=== PATIENT | female | born 1995 | race Caucasian/White ===

== ENCOUNTER 2016-10-31 18:29 | Emergency (ER) | payer MEDICAID, OTHER ==
[2016-10-31 18:54] VITALS: BMI 32.3
--- NOTE | 2016-10-31 19:23 | C.PDOC ---
History Of Present Illness Patient presents to the ER with mid epigastric discomfort that has worsened over the last few days. Patient reports some nausea but denies vomiting, diarrhea, fever or chills. Patient also notes having a miscarriage in May. Time Seen by Provider: 10/31/16 19:22 Chief Complaint (Nursing): Abdominal Pain History Per: Patient History/Exam Limitations: no limitations Onset/Duration Of Symptoms: Days Current Symptoms Are (Timing): Still Present Severity: Moderate Pain Scale Rating Of: 4 Location Of Pain/Discomfort: Epigastric (Mid) Radiation Of Pain To:: None Quality Of Discomfort: Unable To Describe Associated Symptoms: Nausea. denies: Fever, Chills, Vomiting Alleviating Factors: None Recent travel outside of the [place]: No Abnormal Vaginal Bleeding: No Past Medical History Reviewed: Historical Data, Nursing Documentation, Vital Signs Vital Signs: Last Vital Signs Temp 98.0 F 10/31/16 19:00 Pulse 82 10/31/16 19:00 Resp 18 10/31/16 19:00 BP 123/82 10/31/16 19:00 Pulse Ox 98 10/31/16 19:51 - Medical History PMH: Anemia Surgical History: No Surg Hx - [facility] Procedures REPAIR OB LACERATION NEC (12/05/14) Family History: States: Diabetes - Social History Hx Tobacco Use: No Hx Alcohol Use: No Hx Substance Use: No - Immunization History Hx Tetanus Toxoid Vaccination: No Hx Influenza Vaccination: No Hx Pneumococcal Vaccination: No Review Of Systems Constitutional: Negative for: Fever, Chills Eyes: Negative for: Redness ENT: Negative for: Throat Pain Cardiovascular: Negative for: Chest Pain Respiratory: Negative for: Shortness of Breath Gastrointestinal: Positive for: Nausea, Abdominal Pain (Mid epigastric). Negative for: Vomiting, Diarrhea Genitourinary: Positive for: Frequency. Negative for: Hematuria Musculoskeletal: Negative for: Back Pain Skin: Negative for: Rash, Lesions, Jaundice, Bruising Neurological: Negative for: Weakness Psych: Negative for: Anxiety Physical Exam - Physical Exam Appears: Non-toxic Skin: Warm, Dry Oral Mucosa: Moist Neck: Supple Chest: Symmetrical, No Tenderness Cardiovascular: Rhythm Regular, No Murmur Respiratory: No Rales, No Rhonchi, No Wheezing Gastrointestinal/Abdominal: Soft, No Tenderness, No Guarding, No Rebound, Other (Obese, tympanic to percussion) Back: Normal Inspection Extremity: Normal ROM Neurological/Psych: Oriented x3, Normal Speech, Normal Cognition Gait: Steady ED Course And Treatment - Laboratory Results Result Diagrams: 10/31/16 19:40 10/31/16 19:40 O2 Sat by Pulse Oximetry: 98 (Room air) Pulse Ox Interpretation: Normal Progress Note: Blood work and urinalysis ordered. Pepcid IVP and IV fluids administered. Reevaluation Time: 20:53 Reassessment Condition: Improved Medical Decision Making Medical Decision Making: Upon provider reevaluation patient is feeling better, is medically stable, and requires no further treatment in the ED at this time. Patient will be discharged home with Rx for macrobid and protonix. Counseling was provided and all questions were answered regarding diagnosis and need for follow up with the referred clinic. There is agreement to discharge plan. Return if symptoms persist or worsen. Disposition Counseled Patient/Family Regarding: Studies Performed, Diagnosis, Need For Followup, Rx Given - Disposition Referrals: Nani Pepe MD [Medical Doctor] - Disposition: HOME/ ROUTINE Disposition Time: 19:23 Condition: FAIR Prescriptions: Nitrofurantoin Macrocrystals [Macrobid] 1 cap PO BID #14 cap Pantoprazole Sodium [Protonix] 20 mg PO DAILY #15 ect Instructions: Urinary Tract Infection in Women (DC), Gastroesophageal Reflux Disease (ED) - Clinical Impression Clinical Impression: UTI (urinary tract infection), GERD (gastroesophageal reflux disease) - Scribe Statement The provider has reviewed the documentation as recorded by the Scribkirk Gallegos All medical record entries made by the Scribe were at my direction and personally dictated by me. I have reviewed the chart and agree that the record accurately reflects my personal performance of the history, physical exam, medical decision making, and the department course for this patient. I have also personally directed, reviewed, and agree with the discharge instructions and disposition.
[2016-10-31] MEDS ORDERED: Sodium Chloride 0.9% 1,000 ML IV ONE (19:26)
[2016-10-31] MEDS ORDERED: Sodium Chloride 0.9% 1,000 ML ONE (19:41)
[2016-10-31 19:44] LABS: BASO % 0.6 % (0.0-2.0); EOS # 0.1 K/uL (0.0-0.7); EOS % 1.7 % (0.0-4.0); HEMATOCRIT 37.7 % (34.0-47.0); LYMPH # 1.7 K/uL (1.0-4.3); LYMPH % 19.8 % (20.0-40.0); MEAN CELL VOLUME 81.1 fL (81.0-99.0); MEAN CORPUSCULAR HEMOGLOBIN 26.3 pg (27.0-31.0); MEAN CORPUSCULAR HGB CONC 32.5 g/dL (33.0-37.0); MEAN PLATELET VOLUME 11.2 fL (7.2-11.7); MONO # 0.5 K/uL (0.0-0.8); MONO % 5.5 % (0.0-10.0); RED CELL DISTRIBUTION WIDTH 15.7 % (11.5-14.5); WHITE BLOOD COUNT 8.7 K/uL (4.8-10.8)
[2016-10-31 19:46] LABS: RBC URINE 2 /hpf (0-3); URINE BACTERIA RARE (<OCC); URINE BILIRUBIN NEGATIVE (NEGATIVE); URINE BLOOD NEGATIVE (NEGATIVE); URINE COLOR Yellow (YELLOW); URINE GLUCOSE (UA) NORMAL (Normal); URINE KETONE NEGATIVE (NEGATIVE); URINE LEUKOCYTE ESTERASE 3+ Leu/uL (Negative); URINE PROTEIN NEGATIVE (NEGATIVE); URINE UROBILINOGEN NORMAL mg/dL (0.2-1.0); WBC URINE 11 /hpf (0-5)
[2016-10-31 19:52] LABS: CHLORIDE 101 mmol/L (98-107); POTASSIUM 4.4 mmol/L (3.6-5.2); SODIUM 139 mmol/L (132-148)
[2016-10-31 19:54] LABS: GFR AFRICAN-AMERICAN > 60
[2016-10-31 19:55] LABS: ALB/GLOB RATIO 1.1 (1.0-2.1); ALKALINE PHOSPHATASE 75 U/L (38-126); ALT/SGPT 24 U/L (9-52); AST/SGOT 21 U/L (14-36); BILIRUBIN,TOTAL 0.7 mg/dL (0.2-1.3); BLOOD UREA NITROGEN 11 mg/dL (7-17); CALCIUM 8.7 mg/dl (8.6-10.4); CARBON DIOXIDE 28 mmol/L (22-30); GLUCOSE,RANDOM 85 mg/dL (65-105); TOTAL PROTEIN 7.7 g/dL (6.3-8.3)
[2016-10-31] MEDS ORDERED: cefTRIAXone IV 1 gm in Dextros 50 ML IVPB ONE ×2 (20:24→20:55)
[2016-10-31] MEDS ORDERED: Albuterol-Ipratrop 3 mg / 0.5 (3 ml) UD ONE (21:08)
[2016-10-31 21:09] VITALS: BP 120/78; PULSE 74; RESP 20; TEMP 98.3; O2SAT 99
== END 2016-10-31 21:17 | disposition home or self-care (01) ==
LOC: C.ER 18:29
DX: K21.9 Gastro-esophageal reflux disease without esophagitis (principal); N39.0 Urinary tract infection, site not specified
CPT/HCPCS: 80053; 81001; 83690; 84703; 85025; 96361; 96374; 96375; 99283; J0696; J1885; J7040

== ENCOUNTER 2016-11-26 12:14 | Emergency (ER) | payer OTHER ==
[2016-11-26 12:15] VITALS: BMI 32.3
[2016-11-26 12:32] VITALS: BP 129/87; PULSE 85; TEMP 98; O2SAT 97
--- NOTE | 2016-11-26 12:52 | C.PDOC ---
History Of Present Illness 21 y/o female presents to the ED for evaluation of left lower premolar dental pain which began a couple days ago. Patient notes she had a prior filling in the same area. She denies fever, chills, recent injuries/trauma to the affected area. Time Seen by Provider: 11/26/16 12:46 Chief Complaint (Nursing): Dental Pain History Per: Patient History/Exam Limitations: no limitations Onset/Duration Of Symptoms: Days Current Symptoms Are (Timing): Still Present Quality: Positive for: "Pain" Additional History Per: Patient Past Medical History Reviewed: Historical Data, Nursing Documentation, Vital Signs Vital Signs: Last Vital Signs Temp 98 F 11/26/16 12:30 Pulse 85 11/26/16 12:30 Resp 18 11/26/16 13:21 BP 129/87 11/26/16 12:30 Pulse Ox 97 11/26/16 12:51 - Medical History PMH: Anemia Surgical History: No Surg Hx - [facility] Procedures REPAIR OB LACERATION NEC (12/05/14) Family History: States: Diabetes - Social History Hx Tobacco Use: No Hx Alcohol Use: No Hx Substance Use: No - Immunization History Hx Tetanus Toxoid Vaccination: No Hx Influenza Vaccination: No Hx Pneumococcal Vaccination: No Review Of Systems Except As Marked, All Systems Reviewed And Found Negative. Constitutional: Negative for: Fever, Chills ENT: Positive for: Other (+left lower premolar dental pain ) Physical Exam - Physical Exam Appears: Non-toxic, No Acute Distress Skin: Normal Color, Warm, Dry Head: Atraumatic Eye(s): bilateral: Normal Inspection Oral Mucosa: Moist Teeth: Other (+filling noted in premolar tooth) Gingiva: No Swelling Neck: Supple Extremity: Normal ROM Gait: Steady ED Course And Treatment O2 Sat by Pulse Oximetry: 97 (on RA) Pulse Ox Interpretation: Normal Progress Note: Patient received Amoxicillin PO and Motrin PO. Medical Decision Making Medical Decision Making: R anterior lower premolar prior cavity filled, probably renewed infection abx and nsaids and opt f/u with dentisty. Disposition Doctor Will See Patient In The: Office Counseled Patient/Family Regarding: Studies Performed, Diagnosis - Disposition Referrals: [facility] [Outside] [facility] [Outside] Disposition: HOME/ ROUTINE Disposition Time: 12:51 Condition: GOOD Additional Instructions: Amoxicillin 500 mg 2 veces al yahir por 1 semana Ibuprofeno 400-600 mg cada 6 horas zuly necessario para dolor Pepcid 20 mg en la noche para prevenir irritacion' del estomago debido al ibuprofeno Sigue en [facility] o' con otro dentista en [place] semana. Prescriptions: Amoxicillin 500 mg PO Q12H #13 tablet Instructions: Dental Caries (ED) Print Language: LAO - Clinical Impression Clinical Impression: Dentalgia - Scribe Statement The provider has reviewed the documentation as recorded by the Scribe (Nakita Brock) Provider Attestation: All medical record entries made by the Scribe were at my direction and personally dictated by me. I have reviewed the chart and agree that the record accurately reflects my personal performance of the history, physical exam, medical decision making, and the department course for this patient. I have also personally directed, reviewed, and agree with the discharge instructions and disposition.
[2016-11-26 13:22] VITALS: RESP 18
== END 2016-11-26 13:23 | disposition home or self-care (01) ==
LOC: C.ER 12:14
DX: K08.89 Other specified disorders of teeth and supporting structures (principal)

== ENCOUNTER 2018-08-14 12:12 | Outpatient (CLI) | payer MEDICAID | END 2018-08-14 12:13 | disposition home or self-care (01) | LOC: C.LAB 12:12 | DX: E11.9 Type 2 diabetes mellitus without complications (principal); E66.01 Morbid (severe) obesity due to excess calories ==